=== PATIENT | male | born 1980 | race African-American/Black ===

== ENCOUNTER 2017-03-29 13:16 | Emergency (ER) | payer OTHER ==
[~2017-03-29] VITALS: Ht 185.4 cm; Wt 167.8 kg
[2017-03-29] MEDS ORDERED: ERYTHROMYCIN (OPTH) 3.5 GM OINT OP ONE (14:30)
[2017-03-29 15:11] VITALS: BP 142/88
== END 2017-03-29 14:50 | disposition home or self-care (01) ==
LOC: FSED 13:16
DX: H10.31 Unspecified acute conjunctivitis, right eye (principal)
CPT/HCPCS: 99283

== ENCOUNTER 2020-09-13 15:01 | Inpatient (IN) | payer BC, OTHER ==
[~2020-09-13] VITALS: Ht 185.4 cm; Wt 170.1 kg
[2020-09-13] MEDS ORDERED: INSULIN REGULAR, HUMAN 100 UNIT/1 ML IV STA (16:03)
[2020-09-13] MEDS ORDERED: SODIUM CHLORIDE 0.9% 1000ML 1,000 ML IV STA (16:03)
[2020-09-13] MEDS ORDERED: SODIUM CHLORIDE 0.9% 1000ML 1,000 ML ONE (16:14)
[2020-09-13] MEDS ORDERED: INSULIN REGULAR, HUMAN 100 UNIT/1 ML ONE (16:14)
[2020-09-13] MEDS ORDERED: ONDANSETRON HCL INJ 2MG/ML 2ML 2 MG/ML VIAL IV PRN (16:45)
[2020-09-13] MEDS ORDERED: MORPHINE SULFATE INJ 2 MG/ML SYR IV PRN (16:45)
[2020-09-13] MEDS ORDERED: SODIUM CHLORIDE 0.9% 50ML 50 ML ONE (16:50)
[2020-09-13] MEDS ORDERED: IOPAMIDOL 370 MG/ML 200 ML INFUS..BTL INJ ONE (16:50)
[2020-09-13] MEDS ORDERED: DEXTROSE 50% SYRINGE 50 ML IV PRN (17:00)
[2020-09-13 19:30] VITALS: BP 146/88
[2020-09-13] MEDS: SODIUM CHLORIDE 0.9% 1000ML 1,000 ML IV SCH (21:18)
[2020-09-13 21:20] VITALS: BP 146/88
[2020-09-13] MEDS ORDERED: SIMVASTATIN20 MG PO (21:34)
[2020-09-13] MEDS ORDERED: JANUMET 50-1,01 EACH PO (21:34)
[2020-09-13] MEDS ORDERED: GLIPIZIDE ER5 MG PO (21:34)
[2020-09-13] MEDS: INSULIN REGULAR, HUMAN 100 UNIT/1 ML SQ SCH (22:11)
[2020-09-14] VITALS (9 sets, daily range): BP systolic 105–159; BP diastolic 70–89
[2020-09-14] MEDS ORDERED: DEXTROSE 50% SYRINGE 50 ML IV PRN ×2 (01:45)
[2020-09-14] MEDS ORDERED: ACETAMINOPHEN 325 MG TAB PO PRN (01:45)
[2020-09-14] MEDS ORDERED: BENZONATATE 100 MG CAP PO PRN (01:45)
[2020-09-14] MEDS ORDERED: HYDRALAZINE HCL 20 MG/ML VIAL IV PRN (01:45)
[2020-09-14] MEDS ORDERED: POTASSIUM CHLORIDE 20 MEQ TAB CR PO PRN (01:45)
[2020-09-14] MEDS ORDERED: DOCUSATE SODIUM 100 MG CAP PO PRN (01:45)
[2020-09-14] MEDS ORDERED: ONDANSETRON HCL INJ 2MG/ML 2ML 2 MG/ML VIAL IV PRN (01:45)
[2020-09-14] MEDS ORDERED: ALBUTEROL/IPRATROPIUM 3 ML NEB NEB PRN (01:45)
[2020-09-14] MEDS ORDERED: DIPHENHYDRAMINE HCL 25 MG CAP PO PRN (01:45)
[2020-09-14] MEDS ORDERED: MELATONIN 5 MG TABLET PO PRN (01:45)
[2020-09-14] MEDS ORDERED: LIDOCAINE 4% PATCH TP PRN (01:45)
[2020-09-14] MEDS: SODIUM CHLORIDE 0.9% 1000ML 1,000 ML IV SCH (06:08)
[2020-09-14 06:40] LABS: CHOL/HDL RATIO 9.3 (3.9-4.7); CHOLESTEROL 139 MD/DL (0-199); HDL CHOLESTEROL 15 MG/DL (40-60); LDL CHOLESTEROL 75 MG/DL (60-130); MAGNESIUM 1.7 MG/DL (1.3-2.1); TRIGLYCERIDES 243 MG/DL (0-149)
[2020-09-14 06:44] LABS: BASOPHILS # (AUTO) 0.1 (0.0-0.1); BASOPHILS % 0.9 % (0.0-1.0); EOSINOPHILS # (AUTO) 0.1 (0.0-0.4); EOSINOPHILS % 1.6 % (0.0-6.0); HEMOGLOBIN 14.7 g/dL (14.0-18.0); LYMPHOCYTES # (AUTO) 2.4 (1.0-3.2); LYMPHOCYTES % 41.9 % (18.0-39.1); MEAN CORPUSCULAR VOLUME 78.1 fL (81-99); MONOCYTES # (AUTO) 0.9 (0.2-0.8); MONOCYTES % 14.9 % (4.4-11.3); NEUTROPHILS # (AUTO) 2.3 (2.1-6.9); NEUTROPHILS % 40.3 % (38.7-80.0); PLATELET COUNT 211 x10e3/uL (140-360); RED BLOOD COUNT 5.89 x10e6/uL (4.3-5.7); RED CELL DISTRIBUTION WIDTH 15.9 % (11.7-14.4)
[2020-09-14 07:01] LABS: CREATINE KINASE MB 0.9 ng/mL (0-5.0)
[2020-09-14 07:04] LABS: FERRITIN > 2000.00 ng/mL (21.81-274.66); THYROID STIMULATING HORMONE 3.256 uIU/mL (0.350-4.940)
[2020-09-14 07:22] LABS: ALBUMIN/GLOBULIN RATIO 0.8 (0.8-2.0); ANION GAP 12.6 mmol/L (8-16); CALCIUM 8.5 mg/dL (8.4-10.2); CREATININE, SERUM 1.06 mg/dL (0.72-1.25); POTASSIUM 3.6 mmol/L (3.5-5.1)
[2020-09-14] MEDS: INSULIN REGULAR, HUMAN 100 UNIT/1 ML SQ SCH ×2 (07:30→11:30)
[2020-09-14] MEDS: PANTOPRAZOLE SOD 40 MG TABEC PO SCH (08:47)
[2020-09-14] MEDS ORDERED: MORPHINE SULFATE INJ 4 MG/ML INJ 1ML IV PRN (12:00)
[2020-09-14 14:29] LABS: CREATINE KINASE MB 1.1 ng/mL (0-5.0)
[2020-09-14 15:12] LABS: CHOL/HDL RATIO 9.6 (3.9-4.7)
[2020-09-14 15:33] LABS: FREE T4 (FREE THYROXINE) 1.01 ng/dL (0.8-1.8); THYROID STIMULATING HORMONE 1.311 uIU/mL (0.350-4.940)
[2020-09-14] MEDS: LOSARTAN POTASSIUM 100 MG TAB PO SCH (17:00)
[2020-09-14] MEDS: INSULIN LISPRO 100 UNIT/1 ML 3ML VIAL SQ SCH ×3 (17:35→21:21)
[2020-09-14] MEDS: ENOXAPARIN SOD INJ 40 MG/0.4 ML SYR SC SCH (17:38)
[2020-09-14] MEDS ORDERED: SIMVASTATIN 20 MG TAB PO SCH (21:00)
[2020-09-14] MEDS: INSULIN GLARGINE 100 UNITS/ML VIAL SQ SCH (21:21)
[2020-09-14 22:12] LABS: % IRON SATURATION 37 % (15-50); IRON 157 ug/dL (65-175); TOTAL IRON BINDING CAPACITY 423 ug/dL (261-478); TRANSFERRIN 302 mg/dL (174-364)
[2020-09-14 22:38] LABS: FERRITIN > 2000.00 ng/mL (21.81-274.66)
[2020-09-15] VITALS (9 sets, daily range): BP systolic 127–155; BP diastolic 57–90
[2020-09-15 04:54] LABS: BASOPHILS # (AUTO) 0.1 (0.0-0.1); EOSINOPHILS # (AUTO) 0.1 (0.0-0.4); HEMATOCRIT 45.1 % (38.2-49.6); HEMOGLOBIN 14.5 g/dL (14.0-18.0); LYMPHOCYTES # (AUTO) 2.1 (1.0-3.2); LYMPHOCYTES % 40.8 % (18.0-39.1); MEAN CORPUSCULAR HEMOGLOBIN 24.7 pg (28-32); MEAN CORPUSCULAR HGB CONC 32.2 g/dL (31-35); MONOCYTES # (AUTO) 0.8 (0.2-0.8); MONOCYTES % 16.5 % (4.4-11.3); NEUTROPHILS % 39.1 % (38.7-80.0); PLATELET COUNT 217 x10e3/uL (140-360); RED BLOOD COUNT 5.86 x10e6/uL (4.3-5.7); RED CELL DISTRIBUTION WIDTH 15.8 % (11.7-14.4)
[2020-09-15 05:18] LABS: ALBUMIN 2.9 g/dL (3.5-5.0); ALBUMIN/GLOBULIN RATIO 0.9 (0.8-2.0); ANION GAP 11.6 mmol/L (8-16); CALCIUM 8.4 mg/dL (8.4-10.2); CREATININE, SERUM 0.99 mg/dL (0.72-1.25); POTASSIUM 3.6 mmol/L (3.5-5.1)
[2020-09-15 05:52] LABS: % IRON SATURATION 38 % (15-50); IRON 135 ug/dL (65-175); TOTAL IRON BINDING CAPACITY 357 ug/dL (261-478); TRANSFERRIN 255 mg/dL (174-364)
[2020-09-15] MEDS: INSULIN LISPRO 100 UNIT/1 ML 3ML VIAL SQ SCH ×8 (07:30→21:44)
[2020-09-15] MEDS: PANTOPRAZOLE SOD 40 MG TABEC PO SCH (08:49)
[2020-09-15] MEDS: LOSARTAN POTASSIUM 100 MG TAB PO SCH (08:49)
[2020-09-15] MEDS ORDERED: ONDANSETRON HCL 4 MG ORAL DISINTEGRATING TAB PO PRN (12:45)
[2020-09-15] MEDS: ENOXAPARIN SOD INJ 40 MG/0.4 ML SYR SC SCH (16:58)
[2020-09-15] MEDS: INSULIN GLARGINE 100 UNITS/ML VIAL SQ SCH (21:27)
[2020-09-16 04:00] VITALS: BP 133/82
[2020-09-16] MEDS: INSULIN LISPRO 100 UNIT/1 ML 3ML VIAL SQ SCH ×7 (07:30→22:32)
[2020-09-16 07:43] VITALS: BP 132/82
[2020-09-16] MEDS: PANTOPRAZOLE SOD 40 MG TABEC PO SCH (08:17)
[2020-09-16] MEDS: LOSARTAN POTASSIUM 100 MG TAB PO SCH (08:17)
[2020-09-16 08:58] VITALS: BP 132/82
[2020-09-16 11:32] VITALS: BP 126/94
[2020-09-16 15:48] VITALS: BP 134/97
[2020-09-16] MEDS: ENOXAPARIN SOD INJ 40 MG/0.4 ML SYR SC SCH (16:31)
[2020-09-16 20:00] VITALS: BP 127/78
[2020-09-16] MEDS ORDERED: INSULIN GLARGINE 100 UNITS/ML VIAL SQ SCH (21:00)
[2020-09-17] VITALS: BP 146/77
[2020-09-17 04:00] VITALS: BP 130/78
[2020-09-17 05:15] LABS: ALBUMIN/GLOBULIN RATIO 0.8 (0.8-2.0); ANION GAP 12.8 mmol/L (8-16); CALCIUM 8.6 mg/dL (8.4-10.2); CREATININE, SERUM 1.06 mg/dL (0.72-1.25); POTASSIUM 3.8 mmol/L (3.5-5.1)
[2020-09-17 08:26] VITALS: BP 132/81
[2020-09-17] MEDS: PANTOPRAZOLE SOD 40 MG TABEC PO SCH (08:31)
[2020-09-17] MEDS: LOSARTAN POTASSIUM 100 MG TAB PO SCH (08:32)
[2020-09-17] MEDS: INSULIN LISPRO 100 UNIT/1 ML 3ML VIAL SQ SCH ×6 (08:35→16:30)
[2020-09-17 08:42] VITALS: BP 132/81
[2020-09-17 13:36] VITALS: BP 140/78
[2020-09-17 16:41] VITALS: BP 130/75
[2020-09-17] MEDS ORDERED: LANTUS 3ML100 UNITS/ SC (17:23)
[2020-09-17] MEDS ORDERED: HUMALOG100 UNIT/1 SC (17:27)
[2020-09-17] MEDS ORDERED: LOSARTAN PO (17:31)
== END 2020-09-17 18:02 | disposition home or self-care (01) | DRG 442 ==
LOC: FSED 15:12 → ERHOLD 16:36 → MED/SURG 19:47 → OBSVTOIN 09-14 12:17
PROVIDERS: ADMIT Internal Medicine; ATTEND Internal Medicine
DX: B16.9 Acute hepatitis B without delta-agent and without hepatic coma (principal); Z68.42 Body mass index [BMI] 45.0-49.9, adult; E11.65 Type 2 diabetes mellitus with hyperglycemia; E66.01 Morbid (severe) obesity due to excess calories; I10 Essential (primary) hypertension; Z20.822 Contact with and (suspected) exposure to COVID-19; K57.30 Diverticulosis of large intestine without perforation or abscess without bleeding; R00.0 Tachycardia, unspecified; E78.5 Hyperlipidemia, unspecified; Z79.4 Long term (current) use of insulin
CPT/HCPCS: 36415; 71045; 74177; 76700; 80053; 80061; 82550; 82553; 82607; 82728; 82746; 82948; 83021; 83036; 83540; 83735; 84439; 84443; 84466; 84481; 84484; 85025; 85045; 85651; 86140; 87350; 87517; 93005; 93306; 96372; 96374; 99284; G0378; J1650; J1815; J1817; J2270; J7030; Q9967